=== PATIENT | female | born 1950 | race Caucasian/White ===

== ENCOUNTER → 2018-11-21 | Outpatient (CLI) | payer MEDICARE ==
[2015-09-30 01:32] VITALS: BP 139/68
[~2018-11-21] MED LIST: AMLO1TAB5 PO; BUPR100T6 PO; CALC625T20 PO; FLUO40CA9 PO; LEXAPRO10 MG PO; MULT-245 PO; SUMA100T3 PO
--- NOTE | 2018-11-21 17:26 | RAD ---
ANKLE LEFT 3V, HIP RIGHT 1 VIEW WITH PELVIS History: Left ankle pain, right hip pain Comparison: None. Left ankle: 3 views left ankle are submitted. No acute fracture or dislocation is identified. There is mild degenerative change associated with the medial malleolus. IMPRESSION: 1. No acute osseous abnormality is identified. There is mild degenerative change associated with the medial malleolus. AP pelvis and right hip radiographs: AP view of the pelvis and additional lateral view the right hip are submitted. There are multiple calcifications in the bilateral pelvis more likely phleboliths. Hip joint spaces are relatively preserved. Femoral head morphology is maintained bilaterally. No acute fracture or dislocation is identified. There is mild osteophyte formation associated with superior right acetabulum. IMPRESSION: 1. There is mild osteoarthritic change of the right hip. Electronically signed by: Nolan Connor MD (11/21/2018 5:23 PM) [id number]
== END | disposition home or self-care (01) ==
LOC: DXRAD 15:45
PROVIDERS: ATTEND Orthopaedic Surgery Sports Medicine
DX: M16.11 Unilateral primary osteoarthritis, right hip (principal); M19.072 Primary osteoarthritis, left ankle and foot
CPT/HCPCS: 73501; 73610